=== PATIENT | male | born 1960 | race Caucasian/White ===

== ENCOUNTER 2020-02-21 19:06 | Inpatient (IN) | payer MEDICARE, OTHER ==
[~2020-02-21] VITALS: Ht 172.7 cm; Wt 105.2 kg
[2020-02-21] MEDS ORDERED: ATOR40TA PO (19:17)
[2020-02-21] MEDS ORDERED: METO50TA16 PO (19:17)
[2020-02-21] MEDS ORDERED: ASPI-1094 PO (19:17)
--- NOTE | 2020-02-21 19:30 | NUR ---
Dr Weaver at bedside for MSE and previous medical records reviewed from forwarding facility. Pt is now medically cleared. MHU notified and received Bed 139 A from charge nurse. Belongings list completed and MRSA swab done.
--- NOTE | 2020-02-21 20:13 | NUR ---
Pt is ready to be admitted under Dr. Herron. Dx: Psychosis, 5150 hold for DTS/DTO. Report given to Gabriela U nurse. Roll over process started.
--- NOTE | 2020-02-21 20:24 | NUR ---
Transfer patient to U via wheelchair. Stable condition.
[2020-02-21] MEDS ORDERED: BLOOD SUGAR DIAGNOSTIC 1 EACH STRIP VI ONE (20:45)
[2020-02-21] MEDS ORDERED: MAGNESIUM HYDROXIDE 30 ML LIQUID UDC PO PRN (20:45)
[2020-02-21] MEDS ORDERED: TEMAZEPAM 7.5 MG CAPSULE PO PRN (20:45)
[2020-02-21] MEDS ORDERED: ACETAMINOPHEN 325 MG TABLET PO PRN (20:45)
[2020-02-21] MEDS ORDERED: LORAZEPAM 0.5 MG TABLET PO PRN (20:45)
[2020-02-21] MEDS ORDERED: MAG HYDROX/AL HYDROX/SIMETH 30 ML LIQUID UDC PO PRN (20:45)
--- NOTE | 2020-02-21 21:30 | NUR ---
GPS ADMISSION NOTE : Patient is a 59 year old male, brought in to the hospital by ambulance from [facility], admitted on a 5150 . Patient is on a 5150 for DTS and DTO. Per hold patient has been having command hallucinations telling him to kill himself and to set fire to buildings. Upon face to face evaluation, patient was able to verbalize clearly why he was here. Patient stated " I have not had my medications for a week. I am visiting my aunt and uncle and the voices in my head were getting louder and stronger". Lcac Operator observed patient to be fidgety and anxious. Noted that patient comes from a homeless detention but was very evasive when asked about that. He appeared dirty and his cloths are malodorous. A shower was given. Patient is cooperative and was oriented to the environment. A Patients Rights Handbook and Advisement were provided. VS are stable and patient given a PRN medication per request. Continuing to monitor for SI, safety and any behavior escalations. None noted at this time.
[2020-02-22 07:30] VITALS: BP 136/90
[2020-02-22 08:24] LABS: BILIRUBIN,TOTAL 0.4 mg/dL (0.2-1.0); CREATININE 1.2 mg/dL (0.6-1.3); POTASSIUM 4.9 mmol/L (3.5-5.1); TOTAL PROTEIN, SERUM 6.7 g/dL (6.4-8.2)
[2020-02-22] MEDS: ASPIRIN 81 MG TAB.CHEW PO SCH (08:56)
[2020-02-22] MEDS ORDERED: METOPROLOL TARTRATE 50 MG TABLET PO SCH (09:00)
[2020-02-22 16:00] VITALS: BP 93/58
[2020-02-22] MEDS: busPIRone 5 MG TABLET PO SCH (16:31)
--- NOTE | 2020-02-22 18:27 | NUR ---
Patient remains calm. Compliant with medication. Denies suicidal ideation. no behavioral problem noted. not in distress. no complaint of pain/discomfort. will continue monitor
[2020-02-22 20:00] VITALS: BP 100/68
[2020-02-22] MEDS: METOPROLOL TARTRATE 50 MG TABLET PO SCH (20:23)
[2020-02-22] MEDS: ATORVASTATIN 20 MG TABLET PO SCH (20:24)
[2020-02-22] MEDS ORDERED: ATORVASTATIN 40 MG TABLET PO SCH (21:00)
[2020-02-22] MEDS ORDERED: QUETIAPINE FUMARATE 200 MG TABLET PO SCH ×2 (21:00)
[2020-02-23 07:30] VITALS: BP 103/69
[2020-02-23] MEDS: busPIRone 5 MG TABLET PO SCH ×2 (08:30→16:20)
[2020-02-23] MEDS: ASPIRIN 81 MG TAB.CHEW PO SCH (08:30)
[2020-02-23] MEDS: METOPROLOL TARTRATE 50 MG TABLET PO SCH ×2 (09:00→20:56)
[2020-02-23 16:00] VITALS: BP 101/70
--- NOTE | 2020-02-23 18:18 | NUR ---
Pt received sitting in dinning room this morning, awake, calm, and watching TV. Pt compliant with medication administration, able to make needs known, denies SI and able to CFS at this time. No acute distress of behavioral issue throughout this shift. Will continue to monitor and endorse.
[2020-02-23 20:38] VITALS: BP 104/63
[2020-02-23] MEDS: ATORVASTATIN 20 MG TABLET PO SCH (20:54)
[2020-02-23] MEDS ORDERED: QUETIAPINE FUMARATE 100 MG TABLET PO SCH (21:00)
--- NOTE | 2020-02-24 06:22 | NUR ---
Pt slept 6.15 hrs. Resting in bed at this time. Compliant with medications. Had shower this morning.
[2020-02-24 07:30] VITALS: BP 109/70
[2020-02-24] MEDS: busPIRone 5 MG TABLET PO SCH ×2 (09:18→17:14)
[2020-02-24] MEDS: ASPIRIN 81 MG TAB.CHEW PO SCH (09:18)
[2020-02-24] MEDS: METOPROLOL TARTRATE 50 MG TABLET PO SCH ×2 (09:19→20:27)
--- NOTE | 2020-02-24 11:38 | NUR ---
SW Initial Discharge Plan: Patient is currently homeless and requires placement. Patient requested for a SNF placement preferably in the [place] area. This parts data writer confirmed with patient that she will work on finding him a SNF and will continue to work with the pt and MD to ensure a safe and proper discharge plan. Pt does not want any family members involved in his treatment and discharge plan.
--- NOTE | 2020-02-24 11:42 | NUR ---
Firearms Report: Retail Product Demo Specialist completed and submitted a [employer] firearms report for 5150 danger to self and others certification. A copy of report has been placed in patient chart.
--- NOTE | 2020-02-24 13:34 | NUR ---
MARYAN Discharge Planning: MARYAN faxed patient's referral packet to review to the following facilities: [facility] [address] [place] [address] [facility] Addendum: 02/24/20 at 1423 by YONI HAIR Patient is accepted to [facility].
[2020-02-24 16:00] VITALS: BP 105/54
[2020-02-24 20:00] VITALS: BP 107/66
[2020-02-24] MEDS: ATORVASTATIN 20 MG TABLET PO SCH (20:26)
[2020-02-24] MEDS: QUETIAPINE FUMARATE 200 MG TABLET PO SCH (20:26)
[2020-02-25 07:56] VITALS: BP 117/70
[2020-02-25] MEDS: ASPIRIN 81 MG TAB.CHEW PO SCH (08:38)
[2020-02-25] MEDS: busPIRone 5 MG TABLET PO SCH ×2 (08:38→16:38)
[2020-02-25] MEDS: METOPROLOL TARTRATE 50 MG TABLET PO SCH ×2 (08:39→20:01)
--- NOTE | 2020-02-25 11:23 | NUR ---
MARYAN Individual Therapy: This magazine writer met with the patient to conduct brief individual therapy. Patient presents with depressed mood and flat affect. SW encouraged patient to express his feelings and emotions. Patient is guarded and does not want to share how he is feelings or why. Patient was concerned about his discharge plan. This magazine writer discussed discharge planning with the patient. Pt was grateful for this magazine writer finding him a SNF placement.
[2020-02-25 16:09] VITALS: BP 101/69
[2020-02-25] MEDS: QUETIAPINE FUMARATE 200 MG TABLET PO SCH (20:00)
[2020-02-25] MEDS: ATORVASTATIN 20 MG TABLET PO SCH (20:00)
[2020-02-25 21:11] VITALS: BP 92/51
[2020-02-26 07:30] VITALS: BP 94/60
[2020-02-26] MEDS: METOPROLOL TARTRATE 50 MG TABLET PO SCH ×2 (09:00→21:00)
[2020-02-26] MEDS: ASPIRIN 81 MG TAB.CHEW PO SCH (09:13)
[2020-02-26] MEDS: busPIRone 5 MG TABLET PO SCH ×2 (09:15→16:20)
[2020-02-26 16:00] VITALS: BP 100/69
--- NOTE | 2020-02-26 18:48 | NUR ---
patient remain calm , no distress, watching tv in the dining room, redirectable
--- NOTE | 2020-02-26 20:00 | NUR ---
RECEIVED PATIENT IN THE DAY ROOM. HE IS NOTED A/O X 3. CALM AND PLEASANT UPON APPROACHED. MOOD IS LOW AFFECT IS BLUNTED. HE DENIED SI/HI//AH. HE IS ABLE TO CFS. V/S STABLE AT THIS TIME. PT IS REASSURED FOR SAFETY. SAFETY AND FALL PRECAUTION IN PLACE. WILL CONTINUE TO MONITOR.
[2020-02-26 20:44] VITALS: BP 125/72
[2020-02-26] MEDS: ATORVASTATIN 20 MG TABLET PO SCH (20:45)
[2020-02-26] MEDS ORDERED: QUETIAPINE FUMARATE 100 MG TABLET PO SCH (21:00)
[2020-02-27 07:30] VITALS: BP 124/84
[2020-02-27] MEDS: busPIRone 5 MG TABLET PO SCH ×2 (08:45→18:09)
[2020-02-27] MEDS: ASPIRIN 81 MG TAB.CHEW PO SCH (08:45)
[2020-02-27] MEDS: METOPROLOL TARTRATE 50 MG TABLET PO SCH ×2 (11:36→20:46)
[2020-02-27 16:00] VITALS: BP 111/74
[2020-02-27 20:00] VITALS: BP 114/63
[2020-02-27] MEDS: QUETIAPINE FUMARATE 100 MG TABLET PO SCH (20:46)
[2020-02-27] MEDS: ATORVASTATIN 20 MG TABLET PO SCH (20:46)
[2020-02-28 07:30] VITALS: BP 86/56
[2020-02-28] MEDS: busPIRone 5 MG TABLET PO SCH ×2 (09:11→16:28)
[2020-02-28] MEDS: METOPROLOL TARTRATE 50 MG TABLET PO SCH ×2 (09:12→20:16)
[2020-02-28] MEDS: ASPIRIN 81 MG TAB.CHEW PO SCH (09:12)
--- NOTE | 2020-02-28 11:00 | NUR ---
Gps/Thoracic Medicine Specialist- Urine specimen obtained and sent to lab
[2020-02-28 12:50] LABS: *BILIRUBIN,URIN NEGATIVE (NEGATIVE); *BLOOD, URINE NEGATIVE (NEGATIVE); *CLARITY,URINE CLEAR (CLEAR); *COLOR,URINE YELLOW (YELLOW); *KETONES,URINE NEGATIVE (NEGATIVE); *UROBILINOGEN,URINE 0.2 E.U./dl (NORMAL); LEUKOCYTE ESTERASE ,URINE TRACE (NEGATIVE); NITRITE, URINE NEGATIVE (NEGATIVE); UGLUCOSE NEGATIVE (NEGATIVE)
[2020-02-28 14:16] LABS: BACTERIA,URINE FEW /HPF (NONE SEEN); RBC,URINE NONE SEEN /HPF (0-3); SQUAMOUS EPITHELIAL CELL,UR FEW /HPF (NONE SEEN); WBC,URINE 0-3 /HPF (0-3)
[2020-02-28 15:19] VITALS: BP 90/60
[2020-02-28] MEDS: QUETIAPINE FUMARATE 100 MG TABLET PO SCH (20:15)
[2020-02-28] MEDS: ATORVASTATIN 20 MG TABLET PO SCH (20:16)
[2020-02-28 20:17] VITALS: BP 101/61
[2020-02-29 07:30] VITALS: BP 107/65
[2020-02-29] MEDS: ASPIRIN 81 MG TAB.CHEW PO SCH (08:44)
[2020-02-29] MEDS: METOPROLOL TARTRATE 50 MG TABLET PO SCH ×2 (08:45→21:00)
[2020-02-29] MEDS: busPIRone 5 MG TABLET PO SCH ×2 (08:45→16:42)
--- NOTE | 2020-02-29 10:00 | NUR ---
Patient is AAO x 3, NO acute distress noted. Patient able to express needs. Denies any SI during assessment. Vital signs stable for patient. Denies any pain at this time. Due medication administered and tolerated and compliant. Will continue with care.
[2020-02-29 16:00] VITALS: BP 109/72
[2020-02-29] MEDS: CEphaleXIN 500 MG CAPSULE PO SCH (16:42)
--- NOTE | 2020-02-29 18:00 | NUR ---
Patient started on Keflex 500 PO BID for UTI. First dose administered and tolerated well.
--- NOTE | 2020-02-29 18:34 | NUR ---
Patient calm throughout shift, compliant with care and medication therapy. No SI noted and will continue with care.
[2020-02-29 20:14] VITALS: BP 105/55
[2020-02-29 21:07] VITALS: BP 113/71
[2020-02-29] MEDS: ATORVASTATIN 20 MG TABLET PO SCH (21:08)
[2020-02-29] MEDS: QUETIAPINE FUMARATE 100 MG TABLET PO SCH (21:08)
--- NOTE | 2020-03-01 07:11 | NUR ---
patient slept for approx. 6 hrs through the night. He is compliant with medication regiment diet and plan of care at this time.
[2020-03-01 07:30] VITALS: BP 129/88
[2020-03-01] MEDS: busPIRone 5 MG TABLET PO SCH ×2 (08:25→16:15)
[2020-03-01] MEDS: ASPIRIN 81 MG TAB.CHEW PO SCH (08:25)
[2020-03-01] MEDS: CEphaleXIN 500 MG CAPSULE PO SCH ×2 (08:25→16:15)
[2020-03-01] MEDS: METOPROLOL TARTRATE 50 MG TABLET PO SCH ×2 (09:00→20:34)
--- NOTE | 2020-03-01 10:12 | NUR ---
Patient in the dinning room at this time, Patient is AAO x 3, NO acute distress noted. Patient able to express self. Vital signs stable. Patient is compliant with care. Due morning meds administered and tolerated well. Patient on PO ATB therapy. Patient denies any SI; discussed regarding discharge planning and patient stated "feeling much better" to be discharged. Safety needs in place and will continue with care.
[2020-03-01 16:00] VITALS: BP 108/67
--- NOTE | 2020-03-01 18:19 | NUR ---
Patient took all due meds. Cooperative with care and will continue with care.
[2020-03-01 20:18] VITALS: BP 110/67
[2020-03-01] MEDS: QUETIAPINE FUMARATE 100 MG TABLET PO SCH (21:01)
[2020-03-01] MEDS: ATORVASTATIN 20 MG TABLET PO SCH (21:02)
[2020-03-02 07:30] VITALS: BP 102/73
[2020-03-02] MEDS: METOPROLOL TARTRATE 50 MG TABLET PO SCH ×2 (09:00→20:33)
[2020-03-02] MEDS: CEphaleXIN 500 MG CAPSULE PO SCH ×2 (10:05→16:11)
[2020-03-02] MEDS: ASPIRIN 81 MG TAB.CHEW PO SCH (10:05)
[2020-03-02] MEDS: busPIRone 5 MG TABLET PO SCH ×2 (10:05→16:10)
--- NOTE | 2020-03-02 11:30 | NUR ---
Patient is calm, cooperative, and pleasant. He has appropriate interaction with others. Patient is dressed appropriately. Patient is adherent to medication, no adverse reaction noted. Patient denies suicidal/homicidal ideation, denies auditory/visual hallucinations. Patient is visible on the unit and participating in groups.
[2020-03-02 16:00] VITALS: BP 149/80
[2020-03-02 20:00] VITALS: BP 115/65
[2020-03-02] MEDS: ATORVASTATIN 20 MG TABLET PO SCH (20:32)
[2020-03-02] MEDS: QUETIAPINE FUMARATE 100 MG TABLET PO SCH (20:33)
[2020-03-03 07:30] VITALS: BP 118/77
[2020-03-03] MEDS: ASPIRIN 81 MG TAB.CHEW PO SCH (08:30)
[2020-03-03] MEDS: busPIRone 5 MG TABLET PO SCH (08:30)
[2020-03-03] MEDS: CEphaleXIN 500 MG CAPSULE PO SCH (08:30)
--- NOTE | 2020-03-03 08:41 | NUR ---
Discharge Note: Patient will be discharged to [facility] [address] [place] [id number] ([phone]) via ambulance transportation at 2PM. Spoke with Yaniv the Admin Coordinator at the facility who states they are ready to accept the patient today. Patient is aware and agreeable with discharge plans. Patient is alert and oriented x4, is unable to plan for self-care however is willing to accept care at the facility. Patient denies any suicidal or homicidal ideation. Patient will follow-up at the facility with Psychiatrist Dr. Herron and Wheelman Dr. Garcia. Patient does not have any supportive contacts to notify at this time. Patient signed the homeless waiver upon discharge and a copy was placed in the chart. Homeless resources were provided and include [address] information line for shelters and homeless resources. A copy of all resources given to patient was also placed in the chart. Addendum: 03/03/20 at 1157 by YONI HAIR Change of discharge plan.
[2020-03-03 09:44] VITALS: BP 118/77
[2020-03-03] MEDS: METOPROLOL TARTRATE 50 MG TABLET PO SCH (09:44)
--- NOTE | 2020-03-03 11:57 | NUR ---
SW Discharge Note Updated: Patient will be discharged to [facility] [place] [address] ([phone]) via Ambulance transportation at 2:00pm today. Rehabilitation Team Lead spoke with DARRELL, Computer Support Analyst ([phone]) at facility and he confirmed that patient has been accepted at their facility today. Patient is aware and agreeable with discharge plans. Patient is alert and oriented x4, is unable to plan for self-care however is willing to accept care at the facility. Patient denies any suicidal or homicidal ideation. Patient will follow-up at the facility with Psychiatrist Dr. Herron and Vp Customer Service Dr. Leone Patient does not have any supportive contacts to notify at this time. Patient signed the homeless waiver upon discharge and a copy was placed in the chart. Homeless resources were provided and include [address] information line for shelters and homeless resources. A copy of all resources given to patient was also placed in the chart.
--- NOTE | 2020-03-03 15:14 | NUR ---
Patient will be discharged to facility [facility] via Ambulance transportation at 3:00pm today. all personal belonging returned to patient ,vital sign stable.report called in to facility spoke with Saige COOPER..
== END 2020-03-03 15:37 | DRG 885 ==
LOC: ER 19:06 → GPS 20:16
PROVIDERS: ADMIT Psychiatry & Neurology Psychosomatic Medicine; ATTEND Internal Medicine
DX: F29 Unspecified psychosis not due to a substance or known physiological condition (principal); R45.851 Suicidal ideations; N39.0 Urinary tract infection, site not specified; I11.0 Hypertensive heart disease with heart failure; Z91.5 Personal history of self-harm; E78.5 Hyperlipidemia, unspecified; F25.9 Schizoaffective disorder, unspecified; F32.9 Major depressive disorder, single episode, unspecified; E66.9 Obesity, unspecified; Z68.35 Body mass index [BMI] 35.0-35.9, adult; F19.90 Other psychoactive substance use, unspecified, uncomplicated; Z73.6 Limitation of activities due to disability; I50.9 Heart failure, unspecified
CPT/HCPCS: 36415; A4663